=== PATIENT | female | born 1930 ===

== ENCOUNTER 2018-04-12 07:46 | Inpatient (IN) | payer OTHER ==
[~2018-04-12] VITALS: Ht 165.1 cm; Wt 77.1 kg
== END 2018-04-19 16:20 | disposition home health service (06) | DRG 872 ==
LOC: ER 07:46 → ICU-2 11:11 → MEDI 11:11 → SEC-K 04-13 18:01 → MEDI 04-13 18:02
PROC: 0DH63UZ Insertion of Feeding Device into Stomach, Percutaneous Approach (ICD-10-PCS; principal; 2018-04-17)
DX: A41.9 Sepsis, unspecified organism (principal); N39.0 Urinary tract infection, site not specified; E46 Unspecified protein-calorie malnutrition; E86.0 Dehydration; R39.2 Extrarenal uremia; Z74.01 Bed confinement status; G30.8 Other Alzheimer's disease; F02.80 Dementia in other diseases classified elsewhere, unspecified severity, without behavioral disturbance, psychotic disturbance, mood disturbance, and anxiety; B96.4 Proteus (mirabilis) (morganii) as the cause of diseases classified elsewhere; R13.19 Other dysphagia; L89.152 Pressure ulcer of sacral region, stage 2; T73.0XXA Starvation, initial encounter

== ENCOUNTER 2019-03-26 20:48 | Inpatient (IN) | payer OTHER ==
[~2019-03-26] VITALS: Ht 165.1 cm; Wt 77.1 kg
--- NOTE | 2019-03-26 20:53 | NUR ---
PACIENTE QUE LLEGA EN COMPANIA DE PERSONAL DE EMERGENCIAS MEDICAS Y FAMILIARES DESDE TOBIAS HOGAR. FAMILIARES REFIEREN TRAERLAS POR MULTIPLES ULCERAS INFECTADAS. SE COLOCA EN EL AREA DE OBSERVACION Y SE PRESENTA A MEDICO EN TURNO.
[2019-03-26] MEDS ORDERED: RESTORIL30 M1 (20:59)
[2019-03-26] MEDS ORDERED: ATIVAN0.5 M1 (20:59)
--- NOTE | 2019-03-26 21:04 | NUR ---
SE ORIENTA FAMILIAR SOBRE TX MEDICO EL CUAL REFIERE ENTENDER.SE LE EXTRAEN MUESTRAS.SE CANALIZA Y SE COLOCA FLUIDO DE MANTENIMIENTO BAJANDO SIN DIFICULTAD.
[2019-04-13] MEDS ORDERED: TOPROL XL25 M1 PO (15:58)
[2019-04-15] MEDS ORDERED: FLUCONAZOLE100 MG PO (12:26)
== END 2019-04-15 14:44 | disposition home or self-care (01) | DRG 463 ==
LOC: ER 20:48 → MEDI 21:29
PROVIDERS: ADMIT Internal Medicine
PROC: 0JBR0ZZ Excision of Left Foot Subcutaneous Tissue and Fascia, Open Approach (ICD-10-PCS; principal; 2019-03-27)
PROC: 0JBP0ZZ Excision of Left Lower Leg Subcutaneous Tissue and Fascia, Open Approach (ICD-10-PCS; 2019-03-27)
PROC: CW1D1ZZ Planar Nuclear Medicine Imaging of Lower Extremity using Technetium 99m (Tc-99m) (ICD-10-PCS; 2019-03-27)
PROC: 0T9B70Z Drainage of Bladder with Drainage Device, Via Natural or Artificial Opening (ICD-10-PCS; 2019-03-27)
PROC: 3E0G76Z Introduction of Nutritional Substance into Upper GI, Via Natural or Artificial Opening (ICD-10-PCS; 2019-03-27)
PROC: 8E0ZXY6 Isolation (ICD-10-PCS; 2019-03-28)
PROC: CW1DLZZ Planar Nuclear Medicine Imaging of Lower Extremity using Gallium 67 (Ga-67) (ICD-10-PCS; 2019-03-29)
PROC: 0Y6D0Z2 Detachment at Left Upper Leg, Mid, Open Approach (ICD-10-PCS; 2019-04-09)
PROC: 3E0F7GC Introduction of Other Therapeutic Substance into Respiratory Tract, Via Natural or Artificial Opening (ICD-10-PCS; 2019-04-11)
DX: M86.162 Other acute osteomyelitis, left tibia and fibula (principal); L89.623 Pressure ulcer of left heel, stage 3; M86.172 Other acute osteomyelitis, left ankle and foot; E44.0 Moderate protein-calorie malnutrition; J90 Pleural effusion, not elsewhere classified; I70.262 Atherosclerosis of native arteries of extremities with gangrene, left leg; B37.41 Candidal cystitis and urethritis; L89.522 Pressure ulcer of left ankle, stage 2; Z74.01 Bed confinement status; G30.1 Alzheimer's disease with late onset; F02.80 Dementia in other diseases classified elsewhere, unspecified severity, without behavioral disturbance, psychotic disturbance, mood disturbance, and anxiety; Z66 Do not resuscitate; R79.89 Other specified abnormal findings of blood chemistry; E86.0 Dehydration; E87.8 Other disorders of electrolyte and fluid balance, not elsewhere classified; B96.1 Klebsiella pneumoniae [K. pneumoniae] as the cause of diseases classified elsewhere; R31.29 Other microscopic hematuria; Z93.1 Gastrostomy status

== ENCOUNTER 2019-09-21 16:21 | Inpatient (IN) | payer OTHER ==
[~2019-09-21] VITALS: Ht 160 cm; Wt 72.6 kg
[~2019-09-21 16:21] MED LIST: ATIVAN0.5 M1; FLUCONAZOLE100 MG PO; RESTORIL30 M1; TOPROL XL25 M1 PO
[2019-10-03] MEDS ORDERED: MERREM1 GM IV (09:45)
[2019-10-03] MEDS ORDERED: VANCOMYCIN750 MG/150 IV (09:47)
== END 2019-10-03 19:44 | disposition home or self-care (01) | DRG 463 ==
LOC: ER 16:21 → SURG 21:13 → MEDJ 09-25 09:17
PROVIDERS: Specialist; ADMIT Internal Medicine
PROC: 8E0ZXY6 Isolation (ICD-10-PCS; 2019-09-23)
PROC: B44HZZZ Ultrasonography of Bilateral Lower Extremity Arteries (ICD-10-PCS; 2019-09-23)
PROC: 0JB70ZZ Excision of Back Subcutaneous Tissue and Fascia, Open Approach (ICD-10-PCS; 2019-09-24)
PROC: 02HV33Z Insertion of Infusion Device into Superior Vena Cava, Percutaneous Approach (ICD-10-PCS; 2019-09-24)
PROC: CP1Z1ZZ Planar Nuclear Medicine Imaging of Musculoskeletal System, All using Technetium 99m (Tc-99m) (ICD-10-PCS; 2019-09-24)
PROC: 0JBN0ZZ Excision of Right Lower Leg Subcutaneous Tissue and Fascia, Open Approach (ICD-10-PCS; principal; 2019-09-24 16:30)
PROC: CW1NLZZ Planar Nuclear Medicine Imaging of Whole Body using Gallium 67 (Ga-67) (ICD-10-PCS; 2019-09-28)
DX: M46.28 Osteomyelitis of vertebra, sacral and sacrococcygeal region (principal); L89.154 Pressure ulcer of sacral region, stage 4; A41.89 Other specified sepsis; L89.44 Pressure ulcer of contiguous site of back, buttock and hip, stage 4; L89.894 Pressure ulcer of other site, stage 4; L97.818 Non-pressure chronic ulcer of other part of right lower leg with other specified severity; L98.428 Non-pressure chronic ulcer of back with other specified severity; L89.512 Pressure ulcer of right ankle, stage 2; L89.891 Pressure ulcer of other site, stage 1; G30.8 Other Alzheimer's disease; F02.80 Dementia in other diseases classified elsewhere, unspecified severity, without behavioral disturbance, psychotic disturbance, mood disturbance, and anxiety; Z74.01 Bed confinement status; I73.89 Other specified peripheral vascular diseases; B96.89 Other specified bacterial agents as the cause of diseases classified elsewhere; B95.62 Methicillin resistant Staphylococcus aureus infection as the cause of diseases classified elsewhere; B95.2 Enterococcus as the cause of diseases classified elsewhere; B96.29 Other Escherichia coli [E. coli] as the cause of diseases classified elsewhere